=== PATIENT | male | born 1995 | race Caucasian/White ===

== ENCOUNTER 2017-02-04 21:06 | Emergency (ER) | payer OTHER | END 2017-02-04 22:05 | disposition home or self-care (01) | LOC: ER1 21:06 | DX: S93.402A Sprain of unspecified ligament of left ankle, initial encounter (principal); W18.39XA Other fall on same level, initial encounter; X50.1XXA Overexertion from prolonged static or awkward postures, initial encounter; Y93.61 Activity, american tackle football; Y92.832 Beach as the place of occurrence of the external cause; Y99.8 Other external cause status | CPT/HCPCS: 73610; 99283 ==